=== PATIENT | female | born 1965 | race African-American/Black ===

== ENCOUNTER 2024-09-15 02:56 | Emergency (ER) | payer MEDICAID ==
[~2024-09-15] VITALS: Ht 167.6 cm; Wt 95.0 kg
[2024-09-15 03:13] VITALS: O2SAT 99
[2024-09-15 03:28] VITALS: BP 138/84; PULSE 88; RESP 18; TEMP 37.1; O2SAT 100
[2024-09-15 04:21] LABS: BASOPHILS % 0.7 % (0.0-2.0); EOSINOPHILS % 1.3 % (0.0-5.0); HEMATOCRIT. 44.7 % (36.0-48.0); HEMOGLOBIN. 14.8 g/dL (12.0-16.0); LYMPHOCYTES % 39.8 % (20.0-50.0); MEAN CORPUSCULAR VOLUME 87.9 fL (81.0-99.0); MEAN PLATELET VOLUME 7.2 fl (7.4-10.4); MONOCYTES % 8.3 % (2.0-8.0); NEUTROPHILS % 49.9 % (40.0-76.0); PLATELET 344 x1000/uL (130-400); RED BLOOD CELL COUNT 5.09 mill/uL (4.2-5.4); RED CELL DISTRIBUTION WIDTH 13.9 % (11.6-14.6); WHITE BLOOD COUNT 5.6 x1000/uL (4.5-11.0)
[2024-09-15 04:33] LABS: CARBON DIOXIDE 27 mEq/L (21-32); CHLORIDE 103 mEq/L (98-107); POTASSIUM 4.1 mEq/L (3.5-5.1); SODIUM 137 mEq/L (136-145)
[2024-09-15 04:34] LABS: CALCIUM 9.4 mg/dL (8.7-10.4)
[2024-09-15 04:38] LABS: CREATININE 1.1 mg/dL (0.6-1.0); GLUCOSE 120 mg/dL (70-105)
[2024-09-15 04:39] LABS: UREA NITROGEN BLOOD 10 mg/dL (9-23)
[2024-09-15 04:40] LABS: ALANINE AMINOTRANSFERASE 15 IU/L (10-49); ALBUMIN 4.1 g/dL (3.2-4.8); ASPARTATE AMINOTRANSFERASE 16 IU/L (<34)
[2024-09-15 04:41] LABS: BILIRUBIN DIRECT 0.1 mg/dL (<=3.0); BILIRUBIN TOTAL 0.5 mg/dL (0.1-1.0); PROTEIN TOTAL 7.3 g/dL (6.0-8.3)
[2024-09-15 06:04] LABS: GLUCOSE URINE NEGATIVE (NEGATIVE); KETONES URINE NEGATIVE (NEGATIVE)
[2024-09-15] MEDS ORDERED: DICYCLOMINE 10 MG/5 ML ORAL SYR PO STA (06:11)
[2024-09-15] MEDS ORDERED: VISCOUS LIDOCAINE 2% 15 ML UDC PO STA (06:11)
[2024-09-15] MEDS: MAGNESIUM/ALUMINUM HYDROXIDE/SIMETHICONE 30ML UDC PO STA (06:11)
[2024-09-15 06:57] LABS: HCG SCREEN NEGATIVE
[2024-09-15 07:22] LABS: CLARITY URINE SL HAZY (CLEAR); COLOR URINE YELLOW (YELLOW); PROTEIN URINE NEGATIVE (NEGATIVE); SPECIFIC GRAVITY URINE 1.016 (1.005-1.030)
[2024-09-15 07:23] LABS: LEUKOCYTE ESTERASE URINE NEGATIVE (NEGATIVE); NITRITE URINE NEGATIVE (NEGATIVE); OCCULT BLOOD URINE TRACE (NEGATIVE); UROBILINOGEN URINE 0.2 E.U./dL (0.2-1.0)
[2024-09-15 07:25] LABS: SQUAMOUS EPITHELIAL CELL URINE 1+ /lpf (RARE/1+)
[2024-09-15 07:26] LABS: BACTERIA URINE 2+; RBC URINE 0-2 /hpf (0-2)
[2024-09-15 07:38] LABS: TROPONIN I HIGH SENSITIVITY < 4 ng/L (3.0-34)
[2024-09-15] MEDS: DICYCLOMINE HCL 10MG CAPSULE PO NR (07:45)
[2024-09-15] MEDS ORDERED: TOPUD PO (08:37)
== END 2024-09-15 09:14 | disposition home or self-care (01) ==
LOC: ER 03:19
DX: R10.13 Epigastric pain (principal); E11.9 Type 2 diabetes mellitus without complications; I10 Essential (primary) hypertension; Z88.0 Allergy status to penicillin
CPT/HCPCS: 36415; 76705; 80048; 80076; 81003; 81025; 84484; 84703; 85025; 99284

== ENCOUNTER 2024-12-18 00:54 | Emergency (ER) | payer MEDICAID, OTHER ==
[~2024-12-18] VITALS: Ht 167.6 cm; Wt 105.4 kg
[~2024-12-18 00:54] MED LIST: TOPUD PO
[2024-12-18 03:08] VITALS: PULSE 89; RESP 16; O2SAT 97
[2024-12-18] MEDS: ALBUTEROL (0.083%) 2.5MG/3ML NEB HHN ONE (03:08)
[2024-12-18] MEDS: IBUPROFEN 600MG TABLET PO ONE (03:18)
[2024-12-18 04:03] VITALS: BP 134/85; PULSE 98; RESP 22; TEMP 37; O2SAT 96
[2024-12-18] MEDS ORDERED: GUAI-453 MT (04:05)
[2024-12-18] MEDS ORDERED: ALBU18HF2 IH (04:09)
[2024-12-18 04:25] LABS: INFLUENZA TYPE A Presumptive Negative (Pres. Neg.); INFLUENZA TYPE B Presumptive Negative (Pres. Neg.)
== END 2024-12-18 04:25 | disposition home or self-care (01) ==
LOC: ER 00:54
DX: B34.9 Viral infection, unspecified (principal); I10 Essential (primary) hypertension; E11.9 Type 2 diabetes mellitus without complications; R06.02 Shortness of breath; Z20.822 Contact with and (suspected) exposure to COVID-19; Z88.0 Allergy status to penicillin
CPT/HCPCS: 87804 ×2; 71045; 94640; 99284; 87426; Z7610 ×2